=== PATIENT | female | born 1980 | race Caucasian/White ===

== ENCOUNTER 2019-02-12 12:13 | Emergency (ER) | payer OTHER ==
[2019-02-12 12:53] VITALS: BP 104/68
--- NOTE | 2019-02-12 13:02 | UC ---
Throat Pain/Nasal [place] HPI - HPI Summary HPI Summary: 38-year-old female who had a sore throat and fever and chills for 5 days. She continues to have sore throat. - History of Current Complaint Chief Complaint: UCGeneralIllness Stated Complaint: SORE THROAT Time Seen by Provider: 02/12/19 13:00 Hx Obtained From: Patient Hx Last Menstrual Period: 01/26/19 ?: No Onset/Duration: Gradual Onset Severity: Mild Pain Intensity: 7 Cough: None Associated Signs & Symptoms: Positive: Fever - Allergies/Home Medications Allergies/Adverse Reactions: Allergies Allergy/AdvReac Type Severity Reaction Status Date / Time No Known Allergies Allergy Verified 02/12/19 12:45 PMH/Surg Hx/FS Hx/Imm Hx Previously Healthy: Yes - Surgical History Surgical History: None - Family History Known Family History: Positive: Non-Contributory - Social History Lives: With Family Alcohol Use: Occasionally Substance Use Type: None Smoking Status (MU): Never Smoked Tobacco Review of Systems All Other Systems Reviewed And Are Negative: Yes Constitutional: Positive: Fever ENT: Positive: Sore Throat Is Patient Immunocompromised?: No Physical Exam Triage Information Reviewed: Yes Appearance: Well-Appearing, No Pain Distress, Well-Nourished Vital Signs: Initial Vital Signs Temp 100.8 F 02/12/19 12:47 Pulse 85 02/12/19 12:47 Resp 18 02/12/19 12:47 BP 104/68 02/12/19 12:47 Pulse Ox 100 02/12/19 12:47 Vital Signs Reviewed: Yes Eyes: Positive: Conjunctiva Clear ENT: Positive: Pharyngeal erythema - Very minimal pharyngeal erythema, TMs normal, Uvula midline Neck: Positive: Supple, Nontender, No Lymphadenopathy Respiratory: Positive: Lungs clear, Normal breath sounds, No respiratory distress, No accessory muscle use Cardiovascular: Positive: RRR, No Murmur, Pulses Normal, Brisk Capillary Refill Musculoskeletal Exam: Normal Neurological Exam: Normal Psychological Exam: Normal Skin Exam: Normal Throat Pain/Nasal Course/Dx - Course Course Of Treatment: Rapid strep test: Negative Patient is comfortable here and does not appear ill. She can do warm salt water gargles, throat lozenges and Tylenol every 4 hours alternating with Motrin every 8 hours for pain or fever. - Differential Dx/Diagnosis Provider Diagnosis: Pharyngitis Discharge ED - Sign-Out/Discharge Documenting (check all that apply): Patient Departure All imaging exams completed and their final reports reviewed: No Studies - Discharge Plan Condition: Good Disposition: HOME Prescriptions: Ibuprofen TAB* [Motrin TAB* 600 MG] 600 mg PO Q8H PRN #30 tab PRN Reason: Pain - Mild Magic Mouth Was-YOANDY/MAAL/LIDO* 5 ml SWISH SPIT QID PRN #100 ml PRN Reason: Pain - Mild Patient Education Materials: Pharyngitis (ED) Referrals: Courtney Fan MD [Primary Care Provider] - Additional Instructions: Increase fluids, take Motrin every 8 hours as needed for pain with food. Use the Magic mouthwash as directed. Definite follow-up with your primary care provider early next week if continued symptoms or if worsening symptoms. We will call you if the throat culture comes back positive. - Billing Disposition and Condition Condition: GOOD Disposition: Home
== END 2019-02-12 13:49 | disposition home or self-care (01) ==
LOC: UCEAST 12:13
DX: J02.9 Acute pharyngitis, unspecified (principal)
CPT/HCPCS: 87070; 87651; 99212; G0463